=== PATIENT | female | born 2000 | race Two or more races ===

== ENCOUNTER 2025-05-20 13:08 | Inpatient (IN) | payer OTHER ==
[~2025-05-20] VITALS: Ht 167.6 cm; Wt 78.0 kg
[2025-05-20 14:06] LABS: Hematocrit 39.7 % (36.0-46.0); Hemoglobin 13.1 g/dL (12.2-16.2); Mean Corpuscular Hemoglobin 28.1 pg (28.0-32.0); Mean Corpuscular Volume 85.3 fL (80.0-100.0); Nucleated Red Blood Cells % 0.1 %
[2025-05-20 14:08] LABS: Anion Gap 7 (5-15); Carbon Dioxide 26 mmol/L (20-31); Chloride 107 mmol/L (98-107); Potassium 3.9 mmol/L (3.5-5.1); Sodium 140 mmol/L (136-145)
[2025-05-20 14:08] LABS: Urine Protein, UAD Negative (Negative)
[2025-05-20 14:09] LABS: Calcium 9.3 mg/dL (8.7-10.4)
[2025-05-20 14:14] LABS: BUN/Creatinine Ratio 13.3 (10.0-20.0); Blood Urea Nitrogen 10 mg/dL (9-23); Glucose 84 mg/dL (74-106)
[2025-05-20] MEDS: ONDANSETRON HCL 4 MG/2 ML VIAL IV ONE ×2 (14:15→18:42)
[2025-05-20] MEDS: KETOROLAC TROMETH 30 MG/ML 1ML VIAL IV ONE (14:15)
[2025-05-20] MEDS: SODIUM CHLORIDE 0.9% 1,000 ML IV ONE ×2 (14:15→19:19)
--- NOTE | 2025-05-20 14:21 | ED.PDOC ---
ANGIOGRAPHER HPI Comments 24 y/o F, with PMHx of anemia, presents to the ED for CC of pelvic pain. Patient states, she has been experiencing pelvic pain with associated prolonged menstrual bleeding [id number]. Patient reports, being seen at [facility] for SS and being told that her IUD is embedded onto her uterus and must be removed. Patient relays, following up with her gynecologists however, is unable to scheduled an appointment until weeks out. Patient described bleeding quality to be bright red in appearance, heavy, and clotted; endorses vaginal bleeding to have ceased last night (05/19/25). At this time patient denies active bleeding, abdominal pain, dizziness, fatigue, weakness, or headache. No other symptoms or modifying factors are present at this time. Chief Complaint: Pelvic Pain Time Seen by MD: 13:50 Reviewed Notes: Nurses Notes, Medications, Allergies Allergies: Coded Allergies: NO KNOWN ALLERGIES (Unverified , 05/20/25) Information Source: Patient Mode of Arrival: Ambulatory Timing: Days Prehospital treatment: None Severity: Moderate Vaginal Discharge: None Vaginal Lesions: None Bleeding Quality: Bright Red, Clotted Vaginal Mass: None Onset Of Mass/Bleeding: Menstrual Control: Other (IUD) Blood Type: Unknown Associated Signs and Symptoms: Vaginal Bleeding Past Medical History PAST MEDICAL HISTORY: Anemia Surgical History: Denies all surgeries DIETARY INTERNSHIP History: Denies all DIETARY INTERNSHIP Hx Family History Family History: Unknown Social History Smoker: Non-Smoker Alcohol: Denies ETOH Use Drugs: Denies Drug Use Lives In: Home Constitutional: reports: chills, fever; denies: diaphoresis, fatigue, malaise, sweats, weakness, others EENTM: denies: blurred vision, double vision, ear bleeding, ear discharge, ear drainage, ear pain, ear ringing, eye pain, eye redness, hearing loss, mouth pain, mouth swelling, nasal discharge, nose bleeding, nose congestion, nose pain, photophobia, tearing, throat pain, throat swelling, voice changes, others Respiratory: denies: cough, hemoptysis, orthopnea, SOB at rest, shortness of breath, SOB with excertion, stridor, wheezing, others Cardiovascular: denies: chest pain, dizzy spells, diaphoresis, Dyspnea on exertion, edema, irregular heart beat, left arm pain, lightheadedness, palpitations, PND, syncope, others Gastrointestinal: reports: nausea; denies: abdomen distended, abdominal pain, blood streaked bowels, constipated, diarrhea, dysphagia, difficulty swallowing, hematemesis, melena, poor appetite, poor fluid intake, rectal bleeding, rectal pain, vomiting, others Genitourinary: reports: abnormal vagina bleeding; denies: burning, dyspareunia, dysuria, flank pain, frequency, hematuria, incontinence, pain, , vagina discharge, urgency, others Neurological: denies: dizziness, fainting, headache, left sided numbness, left sided weakness, numbness, paresthesia, pre-existing deficit, right sided numbness, right sided weakness, seizure, speech problems, tingling, tremors, weakness, others Musculoskeletal: denies: back pain, gout, joint pain, joint swelling, muscle pain, muscle stiffness, neck pain, others Integumetry: denies: bruises, change in color, change in hair/nails, dryness, laceration, lesions, lumps, rash, wounds, others Allergic/Immunocompromised: denies: Difficulty Healing, Frequent Infections, Hives, Itching, others Hematologic/Lymphatic: denies: anemia, blood clots, easy bleeding, easy bru ising, swollen glands, others Endocrine: denies: excessive hunger, excessive sweating, excessive thirst, e xcessive urination, flushing, intolerance to cold, intolerance to heat, unexplained weight gain, unexplained weight loss, others Psychiatric: denies: anxiety, bipolar disorder, depression, hopeless, panic disorder, schizophrenia, sleepless, suicidal, others All Other Systems: Reviewed and Negative Physical Exam General Appearance: No Apparent Distress, Normal HEENT: Normal ENT Inspection, Pharynx Normal, TMs Normal Neck: Full Range of Motion, Non-Tender, Normal, Normal Inspection Respiratory: Chest Non-Tender, Lungs Clear, No Accessory Muscle Use, No Respiratory Distress, Normal Breath Sounds Cardiovascular: No Edema, No JVD, No Murmur, No Gallop, Normal Peripheral Pulses, Regular Rate/Rhythm Breast Exam: Deferred Gastrointestinal: No Organomegaly, Non Tender, No Pulsatile Mass, Normal Bowel Sounds, Soft Genitalia: Deferred Pelvic: Deferred Rectal: Deferred Extremities: No calf tenderness, Normal capillary refill, Normal inspection, Normal range of motion, Non-tender, No pedal edema Musculoskeletal : Apperance: Normal Neurologic: Alert, college or university faculty member II-XII nml as Tested, No Motor Deficits, Normal Affect, Normal Mood, No Sensory Deficits Cerebellar Function: Normal Reflexes: Normal Skin: Dry, Normal Color, Warm Lymphatic: No Adenopathy Was a procedure done? Was a procedure done?: No Differential Diagnosis (DIETARY INTERNSHIP) Vaginal Bleeding: Dysmenorrhea, Hormonal, Menorrhagia, Menometrorrhagia, Menstrual Bleeding X-Ray, Labs, Meds, VS Vital Signs Date Time Temp Pulse Resp B/P (MAP) Pulse Ox O2 Delivery O2 Flow Rate FiO2 05/20/25 14:23 98 Room Air* 0 21 05/20/25 13:10 97.3 68 18 135/73 100 97.3 Lab Test 05/20/25 13:46 05/20/25 13:35 Range/Units White Blood Count 7.7 4.4-10.8 10^3/uL Red Blood Count 4.66 4.0-5.20 10^6/uL Hemoglobin 13.1 12.2-16.2 g/dL Hematocrit 39.7 36.0-46.0 % Mean Corpuscular Volume 85.3 80.0-100.0 fL Mean Corpuscular Hemoglobin 28.1 28.0-32.0 pg Mean Corpuscular Hemoglobin Concent 33.0 32.0-36.0 g/dL Red Cell Distribution Width 15.1 H 11.8-14.3 % Platelet Count 268 140-450 10^3/uL Mean Platelet Volume 9.5 6.9-10.8 fL Neutrophils (%) (Auto) 64.3 37.0-80.0 % Lymphocytes (%) (Auto) 28.5 10.0-50.0 % Monocytes (%) (Auto) 5.5 0.0-12.0 % Eosinophils (%) (Auto) 1.2 0.0-7.0 % Basophils (%) (Auto) 0.5 0.0-2.0 % Neutrophils # (Auto) 5.0 1.6-8.6 10 ^3/uL Lymphocytes # (Auto) 2.2 0.4-5.4 10 ^3/uL Monocytes # (Auto) 0.4 0-1.3 10 ^3/uL Eosinophils # (Auto) 0.1 0-0.8 10 ^3/uL Basophils # (Auto) 0 0-0.2 10 ^3/uL Nucleated Red Blood Cells 0.1 % Sodium Level 140 136-145 mmol/L Potassium Level 3.9 3.5-5.1 mmol/L Chloride Level 107 98-107 mmol/L Carbon Dioxide Level 26 20-31 mmol/L Anion Gap 7 5-15 Blood Urea Nitrogen 10 9-23 mg/dL Creatinine 0.75 0.550-1.02 mg/dL Glomerular Filtration Rate Calc 114 >90 mL/min BUN/Creatinine Ratio 13.3 10.0-20.0 Serum Glucose 84 74-106 mg/dL Calcium Level 9.3 8.7-10.4 mg/dL Urine Color Light-yellow Yellow Urine Clarity Clear Clear Urine pH 6.5 5.0-9.0 Urine Specific [place] 1.024 1.001-1.035 Urine Protein Negative Negative Urine Ketones Negative Negative Urine Blood Negative Negative /uL Urine Nitrite Negative Negative Urine Bilirubin Negative Negative Urine Urobilinogen Normal Negative mg/dL Urine Leukocyte Esterase 1+ Negative /uL Urine RBC 4 0 - 4 /hpf Urine Microscopic WBC 10 H 0-5 /HPF Urine Squamous Epithelial Cells Few <5 /hpf Urine Bacteria Few H None Seen /hpf Urine Glucose Normal Normal mg/dL Urine Test Negative Negative Current Medications Medications (Trade) Dose Ordered Sig/[place] Route Start Time Stop Time Status Last Admin Ondansetron HCl (Zofran) 4 mg ONCE ONCE IV 05/20/25 13:45 05/20/25 13:46 DC 05/20/25 14:15 Ketorolac Tromethamine (Toradol Injection) 15 mg ONCE ONCE IV 05/20/25 13:45 05/20/25 13:46 DC 05/20/25 14:15 Sodium Chloride 1,000 ml @ 1,000 mls/hr Q1H ONCE IV 05/20/25 13:45 05/20/25 14:44 DC 05/20/25 14:15 [place] [id number] Ph: [phone] DIAGNOSTIC IMAGING Diagnostic Imaging Report : [id number] Signed PATIENT: NAIN NEVESACCT: [id number] UNIT: [id number] : 2000 LOC: ER ROOM / BED: / AGE / SEX: 24 / F ADM STATUS: REG ER SERVICE 1425 ORDERING PHYSICIAN: MALENA ESTRADA MD PROCEDURE(s): PELUS - PELVIC REASON: recently told iud is out of place. with severe pelvic pain ORDER NUMBER(s): [id number], ACCESSION NUMBER(s): [id number] CLINICAL HISTORY: Recently told IUD is out of place with severe pelvic pain. TECHNIQUE: Ultrasound examination of the female pelvis was performed transabdominally and then endovaginally, in order to better evaluate the uterus and ovaries. COMPARISON: None available. FINDINGS: Anteverted uterus measures 7.7 x 4.4 x 6.6 cm. Endometrium measures approximately 5 mm in thickness. Abnormal position of an intrauterine device (IUD), which is partly within the endometrial canal approximately 2.8 cm from the uterine fundusand and is imbedded within the left anterior uterine body myometrium. Right ovary measures 3.8 x 2 x 2.5 cm. Normal arterial and venous waveforms by Doppler evaluation. Left ovary measures 3.8 x 1.4 by 2.3 cm. Normal arterial and venous waveforms by Doppler evaluation. Incidentally noted cervical nabothian cyst(s). Trace free liquid within the posterior cul-de-sac, which is normal for a reproductive age female. IMPRESSION: Abnormal position of an IUD, which is partly within the endometrial canal approximately 2.8 cm from the uterine fundus and is imbedded within the left anterior uterine body myometrium. Recommend follow-up gynecology consultation. ATED BY: MAX GIBBS MD DICTATED DATE/TIME: 05/20/25 160 SIGNED BY: MAX GIBBS MD SIGNED DATE/TIME: 05/20/25 1602 CC: Time of 1ST Reevaluation: 14:20 Reevaluation 1ST: Unchanged Patient Education/Counseling: Diagnosis, Treatment Family Education/Counseling: No Family Present Departure 1 Departure Time of Disposition: 17:53 (Patient presented with abdominal pain that was concerning for possible appendicits, gastritis, cholecystitis, colitis, gastroenteritis, sbo, or orther possible surgical emergency. Data: 1. I ordered and reviewed the result of at least 3 labs including a CBC, BMP, and Urinalysis. 2. I independently interpreted the following tests: Ultrasound is concerning for abnormal IUD placement .Risk:This patient has a high risk of morbidity due to further diagnostic testing or treatment and may suffer from an acute abdominal process disorder. Workup reveals intractable abdominal pain and abnormal IUD placement and patient should be admitted for further workup. and possible expert consultation. ) Impression: Primary Impression: Intractable abdominal pain Additional Impression: IUD migration Disposition: ADMITTED INPATIENT Admit to: Med Surg Condition: Guarded Critical Care Note Critical Care Time?: No Stability Stability form required: No Heart Score Heart Score: Heart Score Response (Comments) Value History N/A 0 EKG N/A 0 Age N/A 0 Risk Factors N/A 0 Troponin N/A 0 Total 0 I personally scribed for MALENA ESTRADA MD ([email or web address]) on 05/20/25 at 14:21. Electronically submitted by Brenda Thomas ([email or web address]). I personally scribed for MALENA ESTRADA MD ([email or web address]) on 05/20/25 at 17:49. Electronically submitted by Brenda Thomas [email or web address]). MALENA ESTRADA MD May 20, 2025 14:21
--- NOTE | 2025-05-20 16:04 | DVH ---
CLINICAL HISTORY: Recently told IUD is out of place with severe pelvic pain. TECHNIQUE: Ultrasound examination of the female pelvis was performed transabdominally and then endovaginally, in order to better evaluate the uterus and ovaries. COMPARISON: None available. FINDINGS: Anteverted uterus measures 7.7 x 4.4 x 6.6 cm. Endometrium measures approximately 5 mm in thickness. Abnormal position of an intrauterine device (IUD), which is partly within the endometrial canal approximately 2.8 cm from the uterine fundusand and is imbedded within the left anterior uterine body myometrium. Right ovary measures 3.8 x 2 x 2.5 cm. Normal arterial and venous waveforms by Doppler evaluation. Left ovary measures 3.8 x 1.4 by 2.3 cm. Normal arterial and venous waveforms by Doppler evaluation. Incidentally noted cervical nabothian cyst(s). Trace free liquid within the posterior cul-de-sac, which is normal for a reproductive age female. IMPRESSION: Abnormal position of an IUD, which is partly within the endometrial canal approximately 2.8 cm from the uterine fundus and is imbedded within the left anterior uterine body myometrium. Recommend follow-up gynecology consultation.
[2025-05-20] MEDS: MORPHINE SULFATE 4 MG/ML SYR/VIAL IV ONE (18:43)
[2025-05-20] MEDS ORDERED: TEMAZEPAM 15 MG CAP PO PRN (19:00)
[2025-05-20] MEDS ORDERED: ONDANSETRON HCL 4 MG/2 ML VIAL IV PRN (19:00)
[2025-05-20] MEDS ORDERED: MORPHINE SULFATE INJ 2 MG/ml SYRG IV PRN (19:00)
[2025-05-20 20:50] VITALS: BP 105/59; PULSE 74; RESP 18; TEMP 97.7; O2SAT 100
[2025-05-20 21:19] VITALS: BP 110/74; PULSE 76; RESP 16; TEMP 97.8; O2SAT 99
[2025-05-20] MEDS: SODIUM CHLOR 0.9% PF (SALINE LOCK) 10ML VIAL/SYR IV SCH (22:00)
[2025-05-21 01:00] VITALS: BP 97/58; PULSE 69; RESP 18; TEMP 97.9; O2SAT 99
[2025-05-21 03:25] LABS: Hematocrit 36.0 % (36.0-46.0); Hemoglobin 11.7 g/dL (12.2-16.2); Mean Corpuscular Hemoglobin 28.1 pg (28.0-32.0); Mean Corpuscular Volume 86.0 fL (80.0-100.0); Nucleated Red Blood Cells % 0.0 %
[2025-05-21 03:45] LABS: Albumin 3.3 g/dL (3.2-4.8); Alkaline Phosphatase 54 U/L (46-116); Anion Gap 7 (5-15); BUN/Creatinine Ratio 12.7 (10.0-20.0); Blood Urea Nitrogen 10 mg/dL (9-23); Carbon Dioxide 26 mmol/L (20-31); Glucose 89 mg/dL (74-106); Potassium 4.1 mmol/L (3.5-5.1); Sodium 144 mmol/L (136-145)
[2025-05-21 03:46] LABS: Bilirubin, Total 0.3 mg/dL (0.2-1.0)
[2025-05-21] MEDS: ACETAMINOPHEN 325 MG TAB PO PRN (03:51)
[2025-05-21 03:59] LABS: Alanine Aminotransferase < 9 U/L (7-40); Calcium 8.0 mg/dL (8.7-10.4); Chloride 111 mmol/L (98-107); Total Protein 5.4 g/dL (5.7-8.2)
[2025-05-21 05:00] VITALS: BP 120/73; PULSE 77; RESP 16; TEMP 98.5; O2SAT 99
[2025-05-21] MEDS: MIDODRINE HCL 10 MG TAB PO SCH (05:49)
[2025-05-21] MEDS ORDERED: ACET-1304 PO (07:44)
[2025-05-21 08:41] VITALS: BP 98/67; PULSE 56; RESP 18; TEMP 97; O2SAT 100
--- NOTE | 2025-05-21 08:41 | DVHINCON2 ---
Date of service: May 21, 2025 Referring Physician Sam Peter MD Reason for Consultation Acute pelvic pain, Embedded IUD History of Present Illness HPI 24y [id number] LMP 05/11/25 Patient with acute pelvic pain, had menses x 12 days duration Pain associated w/ embedded IUD/ malpositioned within endometrial canal per US Denies fever/ chills, abnormal discharge. No hx of STI's Not currently sexually active. PMHx: Anemia Home Meds Reported Medications Acetaminophen (Tylenol Extra Strength) 500 Mg Tab, 500 MG PO, TAB 05/21/25 Past Medical History Cardiac: No pertinent Hx Pulmonary: No pertinent Hx Central Nervous System: No pertinent Hx GI: No pertinent Hx Hemotology/Oncology: Anemia NOS Hepatobiliary: No pertinent Hx Psychiatric: No pertinent Hx Musculoskeletal: No pertinent Hx Rheumotologic: No pertinent Hx Infectious Disease: No peritnent Hx ENT: No pertinent Hx Renal/: No pertinent Hx Endocrine: No pertinent Hx Dermatology: No pertinent Hx Family History: No pertinent Hx Patient Family History: Hypotension G8 MOTHER Smoker: No Hx (Negative) Alocohol: None Drugs: None Lives with: With family Review of Systems Constitutional: No symptom reported Ears, Nose, & Throat: No symptom reported Eyes: No symptom reported Pulmonary/Respiratory: No symptom reported Cardiovascular: No symptom reported Gastrointestinal: No symptom reported Genitourinary: Pain Musculoskeletal: No symptom reported Skin: No symptom reported Psychiatric: No symptom reported Endocrine: No symptom reported Hemotologic/Lymphatic: No symptom reported H&P Exam Vital Signs Vital Signs Date Time Temp Pulse Resp B/P (MAP) Pulse Ox O2 Delivery O2 Flow Rate FiO2 05/21/25 05:00 98.5 77 16 120/73 (89) 99 98.5 05/20/25 21:19 Room Air* 0 21 General Appeara: Well developed, Well nourished, Normal Appearance Head Exam: Normal inspection Neck Exam: Normal inspection Eye Exam: bilateral eye Normal inspection, bilateral eye PERRL Abdominal Exam: Soft, No tenderness Pelvic Exam: Not done RIGGER UP Exam: Normal hearing, Normal speech, PERRL Neuro/Mental St: Alert, Oriented Labs/Xrays Labs Test 05/21/25 03:00 05/20/25 13:46 05/20/25 13:35 Range/Units White Blood Count 8.6 4.4-10.8 10^3/uL Red Blood Count 4.18 4.0-5.20 10^6/uL Hemoglobin 11.7 L 12.2-16.2 g/dL Hematocrit 36.0 36.0-46.0 % Mean Corpuscular Volume 86.0 80.0-100.0 fL Mean Corpuscular Hemoglobin 28.1 28.0-32.0 pg Mean Corpuscular Hemoglobin Concent 32.7 32.0-36.0 g/dL Red Cell Distribution Width 14.8 H 11.8-14.3 % Platelet Count 227 140-450 10^3/uL Mean Platelet Volume 9.3 6.9-10.8 fL Neutrophils (%) (Auto) 53.2 37.0-80.0 % Lymphocytes (%) (Auto) 36.9 10.0-50.0 % Monocytes (%) (Auto) 7.2 0.0-12.0 % Eosinophils (%) (Auto) 2.4 0.0-7.0 % Basophils (%) (Auto) 0.3 0.0-2.0 % Neutrophils # (Auto) 4.5 1.6-8.6 10 ^3/uL Lymphocytes # (Auto) 3.2 0.4-5.4 10 ^3/uL Monocytes # (Auto) 0.6 0-1.3 10 ^3/uL Eosinophils # (Auto) 0.2 0-0.8 10 ^3/uL Basophils # (Auto) 0 0-0.2 10 ^3/uL Nucleated Red Blood Cells 0.0 % Sodium Level 144 136-145 mmol/L Potassium Level 4.1 3.5-5.1 mmol/L Chloride Level 111 H 98-107 mmol/L Carbon Dioxide Level 26 20-31 mmol/L Anion Gap 7 5-15 Blood Urea Nitrogen 10 9-23 mg/dL Creatinine 0.79 0.550-1.02 mg/dL Glomerular Filtration Rate Calc 107 >90 mL/min BUN/Creatinine Ratio 12.7 10.0-20.0 Serum Glucose 89 74-106 mg/dL Calcium Level 8.0 L 8.7-10.4 mg/dL Total Bilirubin 0.3 0.2-1.0 mg/dL Aspartate Amino Transferase (AST) 11 L 13-40 U/L Alanine Aminotransferase (ALT) < 9 7-40 U/L Alkaline Phosphatase 54 46-116 U/L Total Protein 5.4 L 5.7-8.2 g/dL Albumin 3.3 3.2-4.8 g/dL Beta HCG, Quantitative 0.6 L 1.5-4.2 mIU/mL Urine Color Light-yellow Yellow Urine Clarity Clear Clear Urine pH 6.5 5.0-9.0 Urine Specific [place] 1.024 1.001-1.035 Urine Protein Negative Negative Urine Ketones Negative Negative Urine Blood Negative Negative /uL Urine Nitrite Negative Negative Urine Bilirubin Negative Negative Urine Urobilinogen Normal Negative mg/dL Urine Leukocyte Esterase 1+ Negative /uL Urine RBC 4 0 - 4 /hpf Urine Microscopic WBC 10 H 0-5 /HPF Urine Squamous Epithelial Cells Few <5 /hpf Urine Bacteria Few H None Seen /hpf Urine Glucose Normal Normal mg/dL Urine Test Negative Negative Assessment/Plan Admitting Diagnosis: Acute pelvic pain Malpositioned IUD/ suspected endometrial embedded Plan NPO To OR for PEUA, Hysteroscopy with IUD removal, possible laparoscopy if perforated through full thickness of myometrium (rare) R/B/A of procedure d/w pt. informed consent obtained Plan discussed with: Patient Date of Service: May 21, 2025 Billing Provider: FERNIE RAZO DO Common Visit Codes: CONSULT ONLY Consultation Codes: [id number] CONSULT <45MIN FERNIE RAZO DO May 21, 2025 08:41
[2025-05-21] MEDS: LACTATED RINGER'S 1,000 ML IV SCH (08:45)
[2025-05-21] MEDS ORDERED: GLYCOPYRROLATE 0.2 MG/ML 1ML VIAL ONE (09:56)
[2025-05-21] MEDS ORDERED: LIDOCAINE 2% (LOCAL ANESTH.) PF 5ml SDV ONE (09:56)
[2025-05-21] MEDS ORDERED: ONDANSETRON HCL 4 MG/2 ML VIAL ONE (09:56)
[2025-05-21] MEDS ORDERED: KETOROLAC TROMETH 30 MG/ML 1ML VIAL ONE (09:56)
[2025-05-21] MEDS ORDERED: MIDAZOLAM HCL 2MG/2ML 2ml VIAL (1mg/ml) ONE (09:56)
[2025-05-21] MEDS ORDERED: fentaNYL CITRATE 100 MCG/2 ML VL ONE (09:56)
[2025-05-21] MEDS ORDERED: PROPOFOL 10 MG/ML 20 ML IV ONE (09:56)
[2025-05-21] MEDS ORDERED: MEPERIDINE HCL (25 MG/ML) 1ML VIAL ONE ×2 (09:57→10:51)
[2025-05-21] MEDS: ceFAZolin 2 GM/D5W50ml 50 ML IV ONE (10:15)
[2025-05-21 10:53] VITALS: PULSE 97; RESP 18; O2SAT 100
[2025-05-21] MEDS ORDERED: IBUP-1454 PO (10:59)
[2025-05-21] MEDS ORDERED: HYDROmorphone HCL 2 MG/ML VL/or syr IV PRN (11:00)
[2025-05-21] MEDS: ACETAMINOPHEN IV 1000 MG/100ML (10MG/ML) IV ONE (11:00)
--- NOTE | 2025-05-21 11:09 | DVHOP ---
DATE OF SURGERY: 05/21/2025 PREOPERATIVE DIAGNOSES: 1. Acute pelvic pain. 2. Malpositioned intrauterine device, suspected embedded intrauterine device by ultrasound. POSTOPERATIVE DIAGNOSES: 1. Acute pelvic pain. 2. Malpositioned intrauterine device, suspected embedded intrauterine device by ultrasound. PROCEDURES PERFORMED: 1. Pelvic exam under anesthesia. 2. Removal of intrauterine device. 3. Diagnostic hysteroscopy. SURGEON: Obie Avery DO CORE STRIPPER: None. TYPE OF ANESTHESIA: General endotracheal. ANESTHESIOLOGIST: Tamar Beckham MD. DESCRIPTION OF FINDINGS: A normal-sized uterus. Uterine cavity sounds to 8 cm. IUD strings visible at the cervical os. IUD easily removed by withdrawing device through the use of the strings. IUD not embedded. Diagnostic hysteroscopy performed. No evidence of any intracavitary lesions. Normal-appearing endometrial cavity. Bilateral tubal ostia successfully seen. TECHNICAL PROCEDURE: After informed consent was obtained, the patient was taken to the operating room where she underwent smooth induction with general anesthesia. The patient was placed in dorsal lithotomy position. The vagina and perineum were thoroughly prepped. The patient was sterilely draped in the usual fashion. A pelvic exam was then performed under anesthesia with the above-noted findings. A weighted speculum was placed into the patient's vagina. The IUD strings were visible. These were gently grasped and pulled with an instrument and the IUD was easily delivered through the cervical canal without any resistance. The IUD was inspected. It was completely intact. It was submitted to pathology for identification. Next, the anterior lip of the cervix was grasped with ring forceps. Uterine cavity sounded to 8 cm. The uterine cervix was gently dilated to a #8. A diagnostic hysteroscopy was performed. The endometrial cavity was noted to be normal without any lesions. Bilateral tubal ostia were successfully seen. The hysteroscope was removed under direct visualization. All instrumentation was removed from the patient's vagina. The patient was then taken out of lithotomy position, awakened, and taken to recovery room in stable condition. INTRAOPERATIVE COMPLICATIONS: None. ESTIMATED BLOOD LOSS: Less than 5 mL. POSTOPERATIVE CONDITION: Stable. SPECIMENS: Copper IUD to pathology for identification. MEDICATIONS: Ancef 2 grams. Obie Avery DO CG/DIV TID: [id number] RECEIPT: [id number] [facility]
[2025-05-21] MEDS: HYDROcodone-ACET 5/325MG TAB PO PRN (12:26)
[2025-05-21 13:41] VITALS: BP 128/83; PULSE 77; RESP 20; TEMP 97.8; O2SAT 98
[2025-05-21 15:16] VITALS: BP 128/83; PULSE 77; RESP 20; TEMP 97.8; O2SAT 98
--- NOTE | 2025-05-21 15:42 | DVHHP2 ---
History of Present Illness History of Present Illness Paulino Hill is a 24-year-old female presenting to the emergency room with pelvic pain associated with prolonged menstrual bleeding for 12 days. She was previously evaluated at [facility] for the same symptoms, where she was found to have an IUD embedded in her uterus that requires removal.The patient reports pelvic pain with prolonged menstrual bleeding lasting 12 days. She was unable to follow up with her burlesque dancer until weeks later. Ultrasound confirmed malposition of the intrauterine device with embedding in the uterus. Review of Systems Cardiovascular: No: Chest Pain, Palpitations, Orthopnea, Paroxysmal Noc. Dyspnea, Edema, Lt Headedness, Other Genitourinary: No Dysuria, No Frequency, No Incontinence, No Hematuria, No Retention, No Other Skin: No: Rash, Lesions, Jaundice, Bruising, Other Allergies: Coded Allergies: NO KNOWN ALLERGIES (Unverified , 05/20/25) Medications Current Medications Medications Dose Ordered Sig/Lavell Route Start Time Stop Time Status Last Admin Dose Admin Sodium Chloride 10 ml Q8HR IV 05/20/25 22:00 05/21/25 05:49 10 ML Acetaminophen/ Hydrocodone Bitart 1 tab Q4HP PRN PO 05/20/25 19:00 05/21/25 12:26 1 TAB Temazepam 15 mg QHSP PRN PO 05/20/25 19:00 Ondansetron HCl 4 mg Q4HP PRN IV 05/20/25 19:00 Acetaminophen 650 mg Q6HP PRN PO 05/20/25 19:00 05/21/25 03:51 650 MG Morphine Sulfate 2 mg Q4HPRN PRN IV 05/20/25 19:00 Midodrine 10 mg TID@0600,1200,1800 PO 05/21/25 06:00 05/21/25 05:49 10 MG Lactated Ringer's 1,000 ml @ 125 mls/hr Q8H IV 05/21/25 08:45 Exam Vital Signs Vital Signs Date Time Temp Pulse Resp B/P (MAP) Pulse Ox O2 Delivery O2 Flow Rate FiO2 05/21/25 15:16 97.8 77 20 98 05/21/25 13:41 128/83 (98) 05/21/25 10:53 Room Air 0 99 General Appearance: Alert, Oriented X3, Cooperative, No acute distress Respiratory: Clear to auscultation, Normal air movement Cardiovascular: Regular rate, Normal S1, Normal S2 Abdominal: Normal bowel sounds, Soft, No tenderness, No hepatospenomegaly Labs/Xrays Labs Test 05/21/25 03:00 05/20/25 13:46 05/20/25 13:35 Range/Units White Blood Count 8.6 4.4-10.8 10^3/uL Red Blood Count 4.18 4.0-5.20 10^6/uL Hemoglobin 11.7 L 12.2-16.2 g/dL Hematocrit 36.0 36.0-46.0 % Mean Corpuscular Volume 86.0 80.0-100.0 fL Mean Corpuscular Hemoglobin 28.1 28.0-32.0 pg Mean Corpuscular Hemoglobin Concent 32.7 32.0-36.0 g/dL Red Cell Distribution Width 14.8 H 11.8-14.3 % Platelet Count 227 140-450 10^3/uL Mean Platelet Volume 9.3 6.9-10.8 fL Neutrophils (%) (Auto) 53.2 37.0-80.0 % Lymphocytes (%) (Auto) 36.9 10.0-50.0 % Monocytes (%) (Auto) 7.2 0.0-12.0 % Eosinophils (%) (Auto) 2.4 0.0-7.0 % Basophils (%) (Auto) 0.3 0.0-2.0 % Neutrophils # (Auto) 4.5 1.6-8.6 10 ^3/uL Lymphocytes # (Auto) 3.2 0.4-5.4 10 ^3/uL Monocytes # (Auto) 0.6 0-1.3 10 ^3/uL Eosinophils # (Auto) 0.2 0-0.8 10 ^3/uL Basophils # (Auto) 0 0-0.2 10 ^3/uL Nucleated Red Blood Cells 0.0 % Sodium Level 144 136-145 mmol/L Potassium Level 4.1 3.5-5.1 mmol/L Chloride Level 111 H 98-107 mmol/L Carbon Dioxide Level 26 20-31 mmol/L Anion Gap 7 5-15 Blood Urea Nitrogen 10 9-23 mg/dL Creatinine 0.79 0.550-1.02 mg/dL Glomerular Filtration Rate Calc 107 >90 mL/min BUN/Creatinine Ratio 12.7 10.0-20.0 Serum Glucose 89 74-106 mg/dL Calcium Level 8.0 L 8.7-10.4 mg/dL Total Bilirubin 0.3 0.2-1.0 mg/dL Aspartate Amino Transferase (AST) 11 L 13-40 U/L Alanine Aminotransferase (ALT) < 9 7-40 U/L Alkaline Phosphatase 54 46-116 U/L Total Protein 5.4 L 5.7-8.2 g/dL Albumin 3.3 3.2-4.8 g/dL Beta HCG, Quantitative 0.6 L 1.5-4.2 mIU/mL Urine Color Light-yellow Yellow Urine Clarity Clear Clear Urine pH 6.5 5.0-9.0 Urine Specific [place] 1.024 1.001-1.035 Urine Protein Negative Negative Urine Ketones Negative Negative Urine Blood Negative Negative /uL Urine Nitrite Negative Negative Urine Bilirubin Negative Negative Urine Urobilinogen Normal Negative mg/dL Urine Leukocyte Esterase 1+ Negative /uL Urine RBC 4 0 - 4 /hpf Urine Microscopic WBC 10 H 0-5 /HPF Urine Squamous Epithelial Cells Few <5 /hpf Urine Bacteria Few H None Seen /hpf Urine Glucose Normal Normal mg/dL Urine Test Negative Negative SEPSIS Sepsis Screen Date sepsis recognized/suspect: May 20, 2025 Time Sepsis recognized/suspect: 2 Recent Procedure: No On Antibiotic Therapy: No Respiratory Rate >20: No Heart Rate >90: No Temp<36 C (96.8 F) or >38.3 C: No SBP <90 or MAP <65 mmHG: No New Acute Mental Status Change: No Is the patient on CPAP, BIPAP,: No Physician Orders Npo (Nothing By Mouth) Diet (05/21/25 Breakfast) Allergies (05/21/25 08:34) Procedure Being Performed: (05/21/25 08:34) Obtain Consent For: (05/21/25 08:34) Bedrest With Bathroom Privileg (05/21/25 08:34) Abdominal Clip Prep (05/21/25 08:34) Lactated Ringer's (05/21/25 08:45) Obtain Consent For Anesthesia (05/21/25 08:34) Oxygen By Face Mask (05/21/25 10:59) Curtain Worker (05/21/25 10:59) Notify Anesth. For Changes: (05/21/25 10:59) Pulse Ox Assessment (05/21/25 10:59) May Have Head Of Bed Up (05/21/25 10:59) Continue Present Iv (05/21/25 10:59) Discharge To Room Per Criteria (05/21/25 10:59) Discharge (05/21/25 10:59) Vital Signs Date Time Temp Pulse Resp B/P (MAP) Pulse Ox O2 Delivery O2 Flow Rate FiO2 05/21/25 15:16 97.8 77 20 98 05/21/25 13:41 97.8 77 20 128/83 (98) 98 97.8 05/21/25 11:23 87 18 124/85 (98) 100 05/21/25 11:08 91 16 122/74 (90) 100 05/21/25 11:03 99 16 118/72 (87) 100 05/21/25 10:58 98 14 124/72 (89) 100 05/21/25 10:53 Room Air 0 99 05/21/25 10:53 97 18 100 Room Air 0 05/21/25 10:53 97.3 97 16 119/76 (90) 100 97.3 05/21/25 08:41 97.0 56 18 98/67 (77) 100 97.0 05/21/25 08:00 Room Air* 0 21 Medications Medications Dose Ordered Sig/Lavell Route Start Time Stop Time Status Last Admin Dose Admin Cefazolin Sodium/ Dextrose 50 ml @ ud STK-MED ONCE IV 05/21/25 09:57 05/21/25 09:57 DC 05/21/25 10:15 Midodrine 10 mg TID@0600,1200,1800 PO 05/21/25 06:00 05/21/25 05:49 10 MG Assessment/Plan Assessment/Plan Acute Pelvic Pain Assessment: Patient presents with acute pelvic pain associated with prolonged menstrual bleeding lasting 12 days. Previous evaluation at [facility] revealed IUD embedded in uterus confirmed by ultrasound. Patient was unable to follow up with burlesque dancer for weeks, necessitating hospital admission for urgent management. Plan: - Hospital admission for IUD removal by gynecology - Gynecology consultation for embedded IUD removal Embedded Intrauterine Device Assessment: Malpositioned intrauterine device embedded in uterus as confirmed by ultrasound imaging at previous facility. Device malposition is causing prolonged menstrual bleeding and acute pelvic pain requiring urgent removal. Plan: - Hospital admission for surgical removal of embedded IUD - Gynecology consultation for device removal procedure Plan discussed with: Patient Date of Service: May 20, 2025 Billing Provider: EILEEN LARA MD Common Visit Codes: 26928-[id number] INP/OBS CARE (MOD) AISSATOU RUSSELL INTAKE COUNSELOR May 21, 2025 15:42
--- NOTE | 2025-05-21 15:46 | DVHDS2 ---
Discharge Summary Date of Admission May 20, 2025 at 18:48 Date of Discharge: May 21, 2025 Admitting Diagnosis acute pelvic pain Labs/Diagnostic Data: Laboratory Results Test 05/21/25 03:00 05/20/25 13:46 05/20/25 13:35 White Blood Count 8.6 10^3/uL (4.4-10.8) Red Blood Count 4.18 10^6/uL (4.0-5.20) Hemoglobin 11.7 g/dL (12.2-16.2) Hematocrit 36.0 % (36.0-46.0) Mean Corpuscular Volume 86.0 fL (80.0-100.0) Mean Corpuscular Hemoglobin 28.1 pg (28.0-32.0) Mean Corpuscular Hemoglobin Concent 32.7 g/dL (32.0-36.0) Red Cell Distribution Width 14.8 % (11.8-14.3) Platelet Count 227 10^3/uL (140-450) Mean Platelet Volume 9.3 fL (6.9-10.8) Neutrophils (%) (Auto) 53.2 % (37.0-80.0) Lymphocytes (%) (Auto) 36.9 % (10.0-50.0) Monocytes (%) (Auto) 7.2 % (0.0-12.0) Eosinophils (%) (Auto) 2.4 % (0.0-7.0) Basophils (%) (Auto) 0.3 % (0.0-2.0) Neutrophils # (Auto) 4.5 10 ^3/uL (1.6-8.6) Lymphocytes # (Auto) 3.2 10 ^3/uL (0.4-5.4) Monocytes # (Auto) 0.6 10 ^3/uL (0-1.3) Eosinophils # (Auto) 0.2 10 ^3/uL (0-0.8) Basophils # (Auto) 0 10 ^3/uL (0-0.2) Nucleated Red Blood Cells 0.0 % Sodium Level 144 mmol/L (136-145) Potassium Level 4.1 mmol/L (3.5-5.1) Chloride Level 111 mmol/L (98-107) Carbon Dioxide Level 26 mmol/L (20-31) Anion Gap 7 (5-15) Blood Urea Nitrogen 10 mg/dL (9-23) Creatinine 0.79 mg/dL (0.550-1.02) Glomerular Filtration Rate Calc 107 mL/min (>90) BUN/Creatinine Ratio 12.7 (10.0-20.0) Serum Glucose 89 mg/dL (74-106) Calcium Level 8.0 mg/dL (8.7-10.4) Total Bilirubin 0.3 mg/dL (0.2-1.0) Aspartate Amino Transferase (AST) 11 U/L (13-40) Alanine Aminotransferase (ALT) < 9 U/L (7-40) Alkaline Phosphatase 54 U/L (46-116) Total Protein 5.4 g/dL (5.7-8.2) Albumin 3.3 g/dL (3.2-4.8) Beta HCG, Quantitative 0.6 mIU/mL (1.5-4.2) Urine Color Light-yellow (Yellow) Urine Clarity Clear (Clear) Urine pH 6.5 (5.0-9.0) Urine Specific [place] 1.024 (1.001-1.035) Urine Protein Negative (Negative) Urine Ketones Negative (Negative) Urine Blood Negative /uL (Negative) Urine Nitrite Negative (Negative) Urine Bilirubin Negative (Negative) Urine Urobilinogen Normal mg/dL (Negative) Urine Leukocyte Esterase 1+ /uL (Negative) Urine RBC 4 /hpf (0 - 4) Urine Microscopic WBC 10 /HPF (0-5) Urine Squamous Epithelial Cells Few /hpf (<5) Urine Bacteria Few /hpf (None Seen) Urine Glucose Normal mg/dL (Normal) Urine Test Negative (Negative) Other Laboratory Tests 05/21/25 03:00 Brief Hx & Hospital Course: Patient presented with acute pelvic pain found to be secondary to a malpositioned intrauterine device (IUD). Gynecology was consulted upon admission. Pelvic imaging confirmed malposition of the device. Today, patient underwent successful IUD removal by the Gynecology team without complications. Following the procedure, patient reported improvement of symptoms, remained hemodynamically stable, and tolerated oral intake. No further inpatient interventions were indicated. Physical Exam on Day of Discharge: General: Alert, oriented, in no acute distress. CV: Regular rate and rhythm. Resp: Lungs clear to auscultation bilaterally. Abd: Soft, non-distended, mild residual pelvic tenderness, no guarding or rebound. Neuro: Grossly intact. Skin: Warm, dry. Discharge Condition: Stable for discharge home. Discharge Diagnoses: Acute pelvic pain secondary to malpositioned IUD Status post IUD removal Procedures: IUD removal by Gynecology Pain management as needed per instructions provided. Follow-Up Instructions: Follow up with Gynecology within 2 weeks of discharge for reassessment. Follow up with Primary Care Provider within 1 week of discharge for continued monitoring. Return to the ED if symptoms worsen, fever develops, bleeding increases, or new concerns arise. Activity/Diet: Activity as tolerated. Regular diet. Patient Education: Discussed expected post-removal symptoms, warning signs, and follow-up requirements. Patient verbalized understanding. Condition at Discharge: Fair Final Diagnosis/Problems List ACTUE PELVIC PAIN, MALPOSITIONED IUD, S/P IUD-REMOVAL, HYSTEROSCOPY Discharge Disposition: Home Discharge Instruct/Medications Diet: Regular Activity: No Restrictions, As Tolerated Activity comment: Pelvic rest x 72hr Follow Up/Referral: 2 wk [employer] office Medications: Ibuprofen eRx prn pain Scheduled PRN Ibuprofen (Ibuprofen), 1 TAB PO TID PRN Discontinued Medications Acetaminophen (Tylenol Extra Strength), 500 MG PO, (Reported) Discharge Statement: "Patient was advised to return to the ER or call 911 if any headaches, dizziness, shortness of breath, chest pain, abdominal pain, bleeding, fevers, or worsening of medical condition. Patient was counseled about treatment plan, medications, possible side effects, patientverbalized understanding. All questions were answered to the best of my ability. This discharge took greater then 30 minutes in planning, reviewing documentation, counseling the patient, and discussing with other team members." ASSESSMENT ASSESSMENT Assessment ACTUE PELVIC PAIN, MALPOSITIONED IUD, S/P IUD-REMOVAL, HYSTEROSCOPY AISSATOU RUSSELL May 21, 2025 15:45
== END 2025-05-21 16:01 | disposition home or self-care (01) | DRG 532 ==
LOC: ER 13:08 → OVERFLOW 18:48 → EAST 05-21 03:25
PROVIDERS: ADMIT Nurse Practitioner; ATTEND Nurse Practitioner
PROC: 0UJD8ZZ Inspection of Uterus and Cervix, Via Natural or Artificial Opening Endoscopic (ICD-10-PCS; 2025-05-21)
PROC: 0UPDXHZ Removal of Contraceptive Device from Uterus and Cervix, External Approach (ICD-10-PCS; principal; 2025-05-21 10:15)
DX: T83.32XA Displacement of intrauterine contraceptive device, initial encounter (principal); Y76.2 Prosthetic and other implants, materials and accessory obstetric and gynecological devices associated with adverse incidents
CPT/HCPCS: 36415; 76830; 76856; 80048; 80053; 81001; 81025; 84702; 85025; G0378; J1100; J1885; J2003; J2250; J2405; J2704